=== PATIENT | female | born 2000 | race Two or more races ===

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

== ENCOUNTER 2020-12-02 23:48 | Emergency (ER) | payer OTHER ==
[2020-12-03 00:22] VITALS: BP 106/67; PULSE 84; TEMP 98.1; BMI 23.3
[2020-12-03 01:52] LABS: EPI CELLS 6 /uL (0-25.1); HYALINE CASTS 1 /uL (0-3.1); PH,URINE 6.5 (5.0-8.0); URINE APPEARANCE CLEAR; URINE BACTERIA 272 /uL (0-1359); URINE BILIRUBIN NEGATIVE (NEGATIVE); URINE COLOR YELLOW; URINE GLUCOSE (UA) NEGATIVE (NEGATIVE); URINE KETONE NEGATIVE (NEGATIVE); URINE LEUK ESTERASE 2+ (NEGATIVE); URINE NITRITE NEGATIVE (NEGATIVE); URINE PROTEIN NEGATIVE (NEGATIVE); URINE RBC 6 /uL (0-23.9); URINE WBC 69 /uL (0-25.8)
[2020-12-03 01:55] LABS: HCG,QUALITATIVE URINE Negative
[2020-12-03] MEDS ORDERED: AZITHROMYCIN 500 MG TABLET PO ONE (02:01)
[2020-12-03] MEDS ORDERED: FLUCONAZOLE 150 MG TABLET PO ONE ×2 (02:01→02:34)
[2020-12-03] MEDS ORDERED: metroNIDAZOLE 500 MG TABLET PO ONE (02:31)
[2020-12-03] MEDS ORDERED: metroNIDAZOLE 250 MG TABLET ONE (02:34)
== END 2020-12-03 03:07 | disposition home or self-care (01) ==
LOC: JER 23:48
DX: B37.3 Candidiasis of vulva and vagina (principal)
CPT/HCPCS: 36415; 81003; 84703; 87086; 87491; 87591; 99283-25

== ENCOUNTER 2022-08-02 16:20 | Emergency (ER) | payer OTHER ==
[2022-08-02 16:25] VITALS: BP 117/72; RESP 18; TEMP 99.3; BMI 25.7
[2022-08-02] MEDS ORDERED: ACETAMINOPHEN 1000 MG/100 ML BAG IVPB ONE (17:59)
[2022-08-02] MEDS ORDERED: DEXAMETHASONE SOD PHOSPHATE 10 MG/1 ML VIAL IVPUSH ONE (17:59)
[2022-08-02] MEDS ORDERED: ONDANSETRON 4 MG/2 ML VIAL IVPUSH ONE (17:59)
[2022-08-02] MEDS ORDERED: DEXAMETHASONE SOD PHOSPHATE 10 MG/1 ML VIAL ONE (18:07)
[2022-08-02] MEDS ORDERED: ACETAMINOPHEN INJECTION 100 ML IVPB ONE (18:07)
[2022-08-02] MEDS ORDERED: ONDANSETRON 4 MG/2 ML VIAL ONE (18:07)
[2022-08-02 18:37] LABS: EOS % 0.1 % (0-4.5); HEMATOCRIT 39.1 % (32.4-45.2); HEMOGLOBIN 13.3 GM/dL (10.7-15.3); LYMPH % 7.7 % (8-40); MCH 29.8 pg (25.7-33.7); MCHC 33.9 g/dl (32.0-36.0); MEAN PLT VOLUME 8.7 fl (7.5-11.1); MONO % 3.9 % (3.8-10.2); NEUT % 88.3 % (42.8-82.8); PLATELET COUNT 228 10^3/uL (134-434); RBC 4.45 M/mm3 (3.60-5.2); RDW 13.2 % (11.6-15.6); WHITE BLOOD COUNT 7.5 K/mm3 (4.0-10.0)
[2022-08-02 18:59] LABS: ALBUMIN 3.8 g/dl (3.4-5.0); BLOOD UREA NITROGEN 9.1 mg/dL (7-18)
[2022-08-02 19:02] LABS: CREATININE 0.7 mg/dL (0.55-1.3)
[2022-08-02 19:03] LABS: TOT PROT 7.6 g/dl (6.4-8.2)
[2022-08-02 19:04] LABS: BILIRUBIN,TOTAL 0.7 mg/dL (0.2-1)
[2022-08-02 19:07] LABS: THROAT:GRP A STREP NOT DETECTED (NOTDETECTED)
[2022-08-02] MEDS ORDERED: AMOX TR/POT CLAV 875MG/125MG TABLETS (FP) PO ONE (19:09)
[2022-08-02] MEDS ORDERED: AMOX TR/POT CLAV 875MG/125MG TABLETS (FP) ONE (19:13)
[2022-08-02 19:14] VITALS: PULSE 102
[2022-08-02 20:02] LABS: EPI CELLS 7 /uL (0-25.1); HYALINE CASTS 0 /uL (0-3.1); PH,URINE 6.5 (5.0-8.0); URINE APPEARANCE CLEAR; URINE BACTERIA 170 /uL (0-1359); URINE BILIRUBIN NEGATIVE (NEGATIVE); URINE COLOR YELLOW; URINE GLUCOSE (UA) NEGATIVE (NEGATIVE); URINE KETONE NEGATIVE (NEGATIVE); URINE LEUK ESTERASE TRACE (NEGATIVE); URINE NITRITE NEGATIVE (NEGATIVE); URINE PROTEIN NEGATIVE (NEGATIVE); URINE RBC 9 /uL (0-23.9); URINE UROBILINOGEN 0.2 mg/dL (0.2-1.0); URINE WBC 31 /uL (0-25.8)
== END 2022-08-02 20:23 | disposition home or self-care (01) ==
LOC: JER 16:20 → JERFT 16:20
PROC: 3E033NZ Introduction of Analgesics, Hypnotics, Sedatives into Peripheral Vein, Percutaneous Approach (ICD-10-PCS; principal; 2022-08-02)
PROC: 3E033GC Introduction of Other Therapeutic Substance into Peripheral Vein, Percutaneous Approach (ICD-10-PCS; 2022-08-02)
PROC: 3E033GC Introduction of Other Therapeutic Substance into Peripheral Vein, Percutaneous Approach (ICD-10-PCS; 2022-08-02)
DX: R05.1 Acute cough (principal); R68.83 Chills (without fever); J02.9 Acute pharyngitis, unspecified; Z20.822 Contact with and (suspected) exposure to COVID-19
CPT/HCPCS: 0241U-QW; 36415; 71046-TC-FY; 80053; 81003; 84703; 85025; 87086; 87651; 99284-25; J1100

== ENCOUNTER 2022-08-15 16:31 | Emergency (ER) | payer OTHER ==
[2022-08-15 16:52] VITALS: BP 120/64; PULSE 74; RESP 16; TEMP 98.2; BMI 25.7
[2022-08-15] MEDS ORDERED: KETOROLAC TROMETHAMINE 15 MG/ML VIAL IM ONE (18:14)
[2022-08-15] MEDS ORDERED: KETOROLAC TROMETHAMINE 15 MG/ML VIAL ONE (18:17)
== END 2022-08-15 19:56 | disposition home or self-care (01) ==
LOC: JERFT 16:31
PROC: 3E0233Z Introduction of Anti-inflammatory into Muscle, Percutaneous Approach (ICD-10-PCS; principal; 2022-08-15)
DX: S93.402A Sprain of unspecified ligament of left ankle, initial encounter (principal); X50.0XXA Overexertion from strenuous movement or load, initial encounter
CPT/HCPCS: 73610-TC-LT-FY; 99284-25

== ENCOUNTER 2023-04-04 11:17 | Emergency (ER) | payer OTHER ==
[2023-04-04 11:24] VITALS: BP 117/47; PULSE 92; RESP 18; TEMP 98.8; BMI 25.7
[2023-04-04] MEDS ORDERED: LACTATED RINGERS SOLUTION 1000 ML INFUS.BAG IV ONE (12:05)
[2023-04-04] MEDS ORDERED: ONDANSETRON 4 MG/2 ML VIAL IVPUSH ONE (12:05)
[2023-04-04] MEDS ORDERED: FAMOTIDINE 20 MG/50 ML IVPB 20 MG/50 ML MG IVPB ONE ×2 (12:05→12:31)
[2023-04-04] MEDS ORDERED: ACETAMINOPHEN 1000 MG/100 ML BAG IVPB ONE (12:06)
[2023-04-04] MEDS ORDERED: ACETAMINOPHEN INJECTION 100 ML IVPB ONE (12:31)
[2023-04-04] MEDS ORDERED: ONDANSETRON 4 MG/2 ML VIAL ONE (12:31)
[2023-04-04 12:49] LABS: HEMATOCRIT 41.4 % (32.4-45.2); HEMOGLOBIN 13.9 GM/dL (10.7-15.3); MCH 29.4 pg (25.7-33.7); MCHC 33.6 g/dl (32.0-36.0); MEAN CELL VOLUME 87.5 fl (80-96); MEAN PLT VOLUME 8.2 fl (7.5-11.1); PLATELET COUNT 310 10^3/uL (134-434); RBC 4.73 M/mm3 (3.60-5.2)
[2023-04-04 12:59] LABS: POTASSIUM 4.1 mmol/L (3.5-5.1)
[2023-04-04 13:01] LABS: CALCIUM 8.7 mg/dL (8.5-10.1)
[2023-04-04 13:02] LABS: ALBUMIN 3.8 g/dl (3.4-5.0); BLOOD UREA NITROGEN 12.6 mg/dL (7-18)
[2023-04-04 13:04] LABS: CREATININE 0.6 mg/dL (0.55-1.3)
[2023-04-04 13:06] LABS: BILIRUBIN,TOTAL 0.8 mg/dL (0.2-1); TOT PROT 7.6 g/dl (6.4-8.2)
[2023-04-04 13:16] LABS: ANISOCYTOSIS 0; MACROCYTOSIS 0
[2023-04-04] MEDS ORDERED: PSEUDOEPHEDRINE HCL 60 MG TABLET PO ONE (14:30)
[2023-04-04] MEDS ORDERED: PSEUDOEPHEDRINE HCL 60 MG TABLET ONE (14:37)
[2023-04-04 16:22] LABS: URINE APPEARANCE CLEAR; URINE BILIRUBIN NEGATIVE (NEGATIVE); URINE COLOR YELLOW; URINE GLUCOSE (UA) NEGATIVE (NEGATIVE); URINE KETONE 1+ (NEGATIVE); URINE LEUK ESTERASE NEGATIVE (NEGATIVE); URINE NITRITE NEGATIVE (NEGATIVE); URINE PROTEIN NEGATIVE (NEGATIVE); URINE UROBILINOGEN 0.2 mg/dL (0.2-1.0)
== END 2023-04-04 14:43 | disposition home or self-care (01) ==
LOC: JER 11:17
PROC: 3E033GC Introduction of Other Therapeutic Substance into Peripheral Vein, Percutaneous Approach (ICD-10-PCS; principal; 2023-04-04)
PROC: 3E033GC Introduction of Other Therapeutic Substance into Peripheral Vein, Percutaneous Approach (ICD-10-PCS; 2023-04-04)
PROC: 3E033NZ Introduction of Analgesics, Hypnotics, Sedatives into Peripheral Vein, Percutaneous Approach (ICD-10-PCS; 2023-04-04)
DX: R07.89 Other chest pain (principal); R10.84 Generalized abdominal pain; R11.2 Nausea with vomiting, unspecified; R19.7 Diarrhea, unspecified; B97.4 Respiratory syncytial virus as the cause of diseases classified elsewhere; R09.81 Nasal congestion; Z20.822 Contact with and (suspected) exposure to COVID-19
CPT/HCPCS: 0241U-QW; 36415; 80053; 81003; 83690; 84703; 85025; 87086; 93005; 93010; 99284-25